=== PATIENT | male | born 1955 | race Caucasian/White ===

== ENCOUNTER → 2018-01-08 | Outpatient (CLI) | payer OTHER | END | disposition home or self-care (01) | LOC: ECHO 07:26 | DX: I42.8 Other cardiomyopathies (principal) | CPT/HCPCS: 93306 ==

== ENCOUNTER 2020-01-28 14:20 | Inpatient (IN) | payer OTHER ==
[~2020-01-28] VITALS: Ht 177.8 cm; Wt 75.2 kg
--- NOTE | 2020-01-28 14:31 | EKG ---
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
--- NOTE | 2020-01-28 14:33 | PHYS DOC ---
Adult General Chief Complaint Chief Complaint: Chest pain HPI HPI Patient is a 64 year old male with history of CAD presents with acute onset left sided chest pain radiating to shoulder and posterior neck. Symptoms began 2 hours prior to ED arrival and rated moderate to severe better significantly with nitroglycerin aspirin and fentanyl. Chest pain similar to prior anginal episodes. Associated symptoms include nausea shortness of breath. No chills, sweats, fever, cough. No leg pain, swelling. History of DVT or PE. Patient's director of medical services is Dr. Navarro. [] Review of Systems Review of Systems Review of symptoms as per HPI. All other review of symptoms are negative.] All other systems were reviewed and found to be within normal limits, except as documented in this note. Current Medications Current Medications Current Medications Medications (Trade) Dose Ordered Sig/Bob Start Time Stop Time Status Last Admin Dose Admin Morphine Sulfate (Morphine Sulfate) 4 mg 1X ONCE 01/28/20 15:45 01/28/20 16:01 DC 01/28/20 16:14 4 MG Allergies Allergies Allergies Coded Allergies Type Severity Reaction Last Updated Verified amoxicillin Allergy Intermediate Rash 01/28/20 Yes clavulanic acid Allergy Intermediate Rash 01/28/20 Yes codeine Allergy Intermediate Rash 01/28/20 Yes Physical Exam Physical Exam Constitutional: Well developed, well nourished, no acute distress, non-toxic appearance. [] HENT: Normocephalic, atraumatic, bilateral external ears normal, oropharynx moist, no oral exudates, nose normal. [] Eyes: PERRLA, EOMI, conjunctiva normal, no discharge. [] Neck: Normal range of motion, no tenderness, supple, no stridor. [] Cardiovascular:Heart rate regular rhythm, no murmur [] Lungs & Thorax: Bilateral breath sounds clear to auscultation [] Abdomen: Bowel sounds normal, soft, no tenderness, no masses, no pulsatile masses. [] Skin: Warm, dry, no erythema, no rash. [] Back: No tenderness, no CVA tenderness. [] Extremities: No tenderness, no cyanosis, no clubbing, ROM intact, no edema. [] Neurologic: Alert and oriented X 3, normal motor function, normal sensory function, no focal deficits noted. [] Psychologic: Affect normal, judgement normal, mood normal. [] Current Patient Data Vital Signs Vital Signs Date Time Temp Pulse Resp B/P (MAP) Pulse Ox O2 Delivery O2 Flow Rate FiO2 01/28/20 16:14 24 95 Room Air 01/28/20 14:20 99.8 103 142/79 (100) 99.8 Lab Values Laboratory Tests Test 01/28/20 14:33 White Blood Count 11.8 x10^3/uL (4.0-11.0) H Red Blood Count 4.58 x10^6/uL (4.30-5.70) Hemoglobin 15.0 g/dL (13.0-17.5) Hematocrit 43.4 % (39.0-53.0) Mean Corpuscular Volume 95 fL (79-100) Mean Corpuscular Hemoglobin 33 pg (25-35) Mean Corpuscular Hemoglobin Concent 35 g/dL (31-37) Red Cell Distribution Width 13.8 % (11.5-14.5) Platelet Count 204 x10^3/uL (140-400) Neutrophils (%) (Auto) 75 % (31-73) H Lymphocytes (%) (Auto) 14 % (24-48) L Monocytes (%) (Auto) 9 % (0-9) Eosinophils (%) (Auto) 1 % (0-3) Basophils (%) (Auto) 1 % (0-3) Neutrophils # (Auto) 8.9 x10^3/uL (1.8-7.7) H Lymphocytes # (Auto) 1.7 x10^3/uL (1.0-4.8) Monocytes # (Auto) 1.1 x10^3/uL (0.0-1.1) Eosinophils # (Auto) 0.1 x10^3/uL (0.0-0.7) Basophils # (Auto) 0.1 x10^3/uL (0.0-0.2) Sodium Level 138 mmol/L (136-145) Potassium Level 4.1 mmol/L (3.5-5.1) Chloride Level 103 mmol/L (98-107) Carbon Dioxide Level 25 mmol/L (21-32) Anion Gap 10 (6-14) Blood Urea Nitrogen 19 mg/dL (8-26) Creatinine 1.0 mg/dL (0.7-1.3) Estimated GFR (Cockcroft-Gault) 75.5 BUN/Creatinine Ratio 19 (6-20) Glucose Level 148 mg/dL (70-99) H Calcium Level 8.9 mg/dL (8.5-10.1) Total Bilirubin 0.7 mg/dL (0.2-1.0) Aspartate Amino Transferase (AST) 37 U/L (15-37) Alanine Aminotransferase (ALT) 85 U/L (16-63) H Alkaline Phosphatase 83 U/L (46-116) Troponin I Quantitative < 0.017 ng/mL (0.000-0.055) EG-Tpv-C-Type Natriuretic Peptide 70 pg/mL (0-124) Total Protein 7.6 g/dL (6.4-8.2) Albumin 3.8 g/dL (3.4-5.0) Albumin/Globulin Ratio 1.0 (1.0-1.7) Laboratory Tests 01/28/20 14:33 Laboratory Tests 01/28/20 14:33 EKG EKG [EKG: No acute] Radiology/Procedures Radiology/Procedures [CXR: NAD] Course & Med Decision Making Course & Med Decision Making Pertinent Labs and Imaging studies reviewed. (See chart for details) [Atypical chest pain resolved with treatment in the emergency department. Borderline ST elevation inferior leads on EKG. Troponin is negative. Will admit to the hospital service for further evaluation and treatment.] Dragon Disclaimer Dragon Disclaimer This electronic medical record was generated, in whole or in part, using a voice recognition dictation system. Departure Departure Impression: Primary Impression: Chest pain Disposition: ADMITTED INPATIENT Condition: STABLE Referrals: ASHLEY SKELTON (PCP) LASHON LOPEZ DO January 28, 2020 14:33
[2020-01-28 14:41] LABS: BASO # 0.1 x10^3/uL (0.0-0.2); BASO % 1 % (0-3); EOS # 0.1 x10^3/uL (0.0-0.7); EOS % 1 % (0-3); HEMATOCRIT 43.4 % (39.0-53.0); LYMPH # 1.7 x10^3/uL (1.0-4.8); LYMPH % 14 % (24-48); MEAN CORPUSCULAR HEMOGLOBIN 33 pg (25-35); MEAN CORPUSCULAR HGB CONC 35 g/dL (31-37); MEAN CORPUSCULAR VOLUME 95 fL (79-100); MONO # 1.1 x10^3/uL (0.0-1.1); MONO % 9 % (0-9); NEUT # 8.9 x10^3/uL (1.8-7.7); NEUT % 75 % (31-73); PLATELET COUNT 204 x10^3/uL (140-400); RED BLOOD COUNT 4.58 x10^6/uL (4.30-5.70); RED CELL DISTRIBUTION WIDTH 13.8 % (11.5-14.5); WHITE BLOOD COUNT 11.8 x10^3/uL (4.0-11.0)
[2020-01-28 14:51] LABS: CALCIUM 8.9 mg/dL (8.5-10.1); GFR 75.5; POTASSIUM 4.1 mmol/L (3.5-5.1)
[2020-01-28 14:57] LABS: ALBUMIN 3.8 g/dL (3.4-5.0); TOTAL BILIRUBIN 0.7 mg/dL (0.2-1.0); TOTAL PROTEIN 7.6 g/dL (6.4-8.2)
--- NOTE | 2020-01-28 15:07 | RAD ---
EXAM: CHEST 1 VIEW History: Chest pain COMPARISON: None available. TECHNIQUE: Single portable radiograph of the chest FINDINGS: The cardiac silhouette is unremarkable. The lungs are clear bilaterally. The costophrenic sulci are clear and well demarcated. IMPRESSION: No radiographic evidence of an acute cardiopulmonary process. Electronically signed by: Pradip Tarango MD (01/28/2020 3:04 PM) [id number]
[2020-01-28] MEDS ORDERED: MORPHINE SULFATE 4 MG/ML VIAL. IV ONE (15:45)
[2020-01-28] MEDS ORDERED: KETOROLAC 30 MG/ML VIAL. IVP ONE (17:00)
[2020-01-28] MEDS ORDERED: IV NORMAL SALINE 1000ML BAG 1,000 ML IV ONE (17:00)
[2020-01-28 17:03] LABS: BILIRUBIN,URINE SMALL (NEG); CLARITY,URINE CLOUDY; COLOR,URINE YELLOW; NITRITE,URINE NEGATIVE (NEG); PH,URINE 5.5 (<5.0-8.0); PROTEIN,URINE 30 mg/dL (NEG-TRACE)
[2020-01-28 17:08] LABS: BACTERIA,URINE 0 /HPF (0-FEW); HYALINE CASTS, URINE FEW /HPF; RBC,URINE >40 /HPF (0-2); WBC,URINE >40 /HPF (0-4)
[2020-01-28 18:45] VITALS: BP 151/75
--- NOTE | 2020-01-28 19:00 | NUR ---
Admit from ED to [facility] room 673 prior to shift change. A/O x 3. C/O chest pain rated 9/10 described as pressure as well as cough. Reports going to [place] 3 times in the month of October. Orientated to room and call light. Reviewed POC to include Tele monitor, Lab draws such as troponin and COVID nasal swab results. Verbalized understanding. Resting in bed with call light at hand.
[2020-01-28] MEDS: oxyCODONE/APAP 5/325 1 TAB TABLET PO PRN (19:51)
[2020-01-28] MEDS: cefTRIAXone IV Push 1 GM VIAL. IVP SCH (19:51)
[2020-01-28] MEDS ORDERED: CARV6.25 PO (20:15)
[2020-01-28] MEDS ORDERED: ATOR40TA PO (20:16)
[2020-01-28] MEDS ORDERED: ABAC1TAB13 PO (20:18)
[2020-01-28] MEDS ORDERED: DIFL5DRO2 OP (20:24)
[2020-01-28] MEDS ORDERED: ANAS1TAB47 PO (20:25)
[2020-01-28] MEDS ORDERED: NITROGLYCERIN SUBLINGUAL 0.4 MG BOTTLE OF 25. SL PRN (20:30)
--- NOTE | 2020-01-28 20:38 | PDOC1 ---
History and Physical Date of Admission Date of Admission DATE: 01/28/20 TIME: 20:33 History of Present Illness History of Present Illness Mr. Floyd is a 64 year old male with history of CAD presents with acute onset left sided chest pain radiating to shoulder and posterior neck. Symptoms began 2 hours prior to ED arrival and rated moderate to severe better significantly with nitroglycerin aspirin and fentanyl. Chest pain similar to prior anginal episodes. Associated symptoms include nausea shortness of breath. No chills, sweats, fever, cough. No leg pain, swelling. History of DVT or PE. Patient's sponge clipper is Dr. Navarro. [] Past Medical History Cardiovascular: HTN, Other (had SVT, s/p AMIO taken off years ago, ) Pulmonary: No pertinent hx Heme/Onc: No pertinent hx Hepatobiliary: No pertinent hx Infectious disease: HIV Renal/: No pertinent hx Past Surgical History Past Surgical History: No pertinent history Family History Family History: No Significant Social History Smoke: No Drugs: None Current Problem List Problem List Problems Medical Problems: (1) Acute febrile illness Status: Acute (2) Chest pain Status: Acute Current Medications Current Medications Current Medications Morphine Sulfate (Morphine Sulfate) 4 mg 1X ONCE IV Last administered on 01/28/20at 16:14; Start 01/28/20 at 15:45; Stop 01/28/20 at 16:01; Status DC Sodium Chloride 1,000 ml @ 1,000 mls/hr 1X ONCE IV Last administered on 01/28/20at 17:14; Start 01/28/20 at 17:00; Stop 01/28/20 at 17:59; Status DC Ketorolac Tromethamine (Toradol 30mg Vial) 30 mg 1X ONCE IVP Last administered on 01/28/20at 17:12; Start 01/28/20 at 17:00; Stop 01/28/20 at 17:01; Status DC Oxycodone/ Acetaminophen (Percocet 5/325) 1 tab PRN Q4HRS PRN PO PAIN Last administered on 01/28/20at 19:51; Start 01/28/20 at 19:00 Ceftriaxone Sodium (Rocephin) 1 gm Q24H IVP Last administered on 01/28/20at 19:51; Start 01/28/20 at 19:00 Docusate Sodium (Colace) 100 mg DAILY PO ; Start 01/29/20 at 09:00 Morphine Sulfate (Morphine Sulfate) 4 mg PRN Q2HR PRN IV PAIN; Start 01/28/20 at 20:30; Status UNV Nitroglycerin (Nitrostat) 0.4 mg PRN Q5MIN PRN SL CHEST PAIN; Start 01/28/20 at 20:30; Status UNV Active Scripts Active Reported Arimidex (Anastrozole) 1 Mg Tablet 1 Tab PO DAILY 30 Days Durezol (Difluprednate) 5 Ml Drops 5 Ml OP BID Triumeq Tablet (Abacavir/Dolutegravir/Lamivudi) 1 Each Tablet 1 Tab PO DAILY 30 Days Lipitor (Atorvastatin Calcium) 40 Mg Tablet 40 Mg PO HS Coreg (Carvedilol) 6.25 Mg Tablet 6.25 Mg PO BIDWMEALS Allergies Allergies: Coded Allergies: amoxicillin (Verified Allergy, Intermediate, Rash, 01/28/20) clavulanic acid (Verified Allergy, Intermediate, Rash, 01/28/20) codeine (Verified Allergy, Intermediate, Rash, 01/28/20) ROS General: YES: Chills, Fatigue; No: Night Sweats, Malaise, Appetite, Other PSYCHOLOGICAL ROS: YES: Sleep disturbances; No: Anxiety, Behavioral Disorder, Concentration difficultie, Decreased libido, Depression, Disorientation, Hallucinations, Hostility, Irritablity, Memory difficulties, Mood Swings, Obsessive thoughts, Suicidal ideation, Other Eyes: No Blurry vision, No Decreased vision, No Double vision, No Dry eyes, No Excessive tearing, No Eye Pain, No Itchy Eyes, No Loss of vision, No Photophobia, No Scotomata, No Uses contacts, No Uses glasses, No Other HEENT: No: Heacaches, Visual Changes, Hearing change, Nasal congestion, Nasal discharge, Oral lesions, Sinus pain, Sore Throat, Epistaxis, Sneezing, Snoring, Tinnitus, Vertigo, Vocal changes, Other Respiratory: YES: Cough; No: Hemoptysis, Orthopnea, Pleuritic Pain, Shortness of breath, SOB with excertion, Sputum Changes, Stridor, Tachypnea, Wheezing, Other Cardiovascular: yes Chest Pain Gastrointestinal: Yes Nausea; No Vomiting, No Abdominal Pain, No Diarrhea, No Constipation, No Melena, No Hematochezia, No Other Genitourinary: No Dysuria, No Frequency, No Incontinence, No Hematuria, No Re tention, No Discharge, No Urgency, No Pain, No Flank Pain, No Other, No , No , No , No , No , No , No Musculoskeletal: No Gait Disturbance, No Joint Pain, No Joint Stiffness, No Joint Swelling, No Muscle Pain, No Muscular Weakness, No Pain In:, No Swelling In:, No Other Neurological: No Behavorial Changes, No Bowel/Bladder ControlChng, No Confusion, No Dizziness, No Gait Disturbance, No Headaches, No Impaired Coord/balance, No Memory Loss, No Numbness/Tingling, No Seizures, No Speech Problems, No Tremors, No Visual Changes, No Weakness, No Other Skin: Yes Dry Skin; No Eczema, No Hair Changes, No Lumps, No Mole Changes, No Mottling, No Nail Changes, No Pruritus, No Rash, No Skin Lesion Changes, No Other, No Acne Physical Exam General: Alert, Oriented X3, Cooperative, mild distress, moderate distress HEENT: Atraumatic, PERRLA, Mucous membr. moist/pink Lungs: Clear to auscultation Heart: S1S2, no gallops, no murmurs Rectal Exam: not examined Extremities: No clubbing, Normal pulses Skin: No rashes, No significant lesion Neuro: Normal speech, Normal tone, Sensation intact, Cranial nerves 3-12 NL Psych/Mental Status: Mood NL Vitals Vitals Vital Signs Date Time Temp Pulse Resp B/P (MAP) Pulse Ox O2 Delivery O2 Flow Rate FiO2 01/28/20 19:51 20 92 Room Air 01/28/20 18:45 98.8 87 151/75 (100) 98.8 Labs Labs Laboratory Tests Test 01/28/20 14:33 01/28/20 16:45 01/28/20 17:25 White Blood Count 11.8 x10^3/uL (4.0-11.0) Red Blood Count 4.58 x10^6/uL (4.30-5.70) Hemoglobin 15.0 g/dL (13.0-17.5) Hematocrit 43.4 % (39.0-53.0) Mean Corpuscular Volume 95 fL (79-100) Mean Corpuscular Hemoglobin 33 pg (25-35) Mean Corpuscular Hemoglobin Concent 35 g/dL (31-37) Red Cell Distribution Width 13.8 % (11.5-14.5) Platelet Count 204 x10^3/uL (140-400) Neutrophils (%) (Auto) 75 % (31-73) Lymphocytes (%) (Auto) 14 % (24-48) Monocytes (%) (Auto) 9 % (0-9) Eosinophils (%) (Auto) 1 % (0-3) Basophils (%) (Auto) 1 % (0-3) Neutrophils # (Auto) 8.9 x10^3/uL (1.8-7.7) Lymphocytes # (Auto) 1.7 x10^3/uL (1.0-4.8) Monocytes # (Auto) 1.1 x10^3/uL (0.0-1.1) Eosinophils # (Auto) 0.1 x10^3/uL (0.0-0.7) Basophils # (Auto) 0.1 x10^3/uL (0.0-0.2) Sodium Level 138 mmol/L (136-145) Potassium Level 4.1 mmol/L (3.5-5.1) Chloride Level 103 mmol/L (98-107) Carbon Dioxide Level 25 mmol/L (21-32) Anion Gap 10 (6-14) Blood Urea Nitrogen 19 mg/dL (8-26) Creatinine 1.0 mg/dL (0.7-1.3) Estimated GFR (Cockcroft-Gault) 75.5 BUN/Creatinine Ratio 19 (6-20) Glucose Level 148 mg/dL (70-99) Calcium Level 8.9 mg/dL (8.5-10.1) Total Bilirubin 0.7 mg/dL (0.2-1.0) Aspartate Amino Transf (AST/SGOT) 37 U/L (15-37) Alanine Aminotransferase (ALT/SGPT) 85 U/L (16-63) Alkaline Phosphatase 83 U/L (46-116) Troponin I Quantitative < 0.017 ng/mL (0.000-0.055) JN-Xey-M-Type Natriuretic Peptide 70 pg/mL (0-124) Total Protein 7.6 g/dL (6.4-8.2) Albumin 3.8 g/dL (3.4-5.0) Albumin/Globulin Ratio 1.0 (1.0-1.7) Urine Collection Type Unknown Urine Color Yellow Urine Clarity Cloudy Urine pH 5.5 (<5.0-8.0) Urine Specific [place] 1.025 (1.000-1.030) Urine Protein 30 mg/dL (NEG-TRACE) Urine Glucose (UA) Negative mg/dL (NEG) Urine Ketones (Stick) Negative mg/dL (NEG) Urine Blood Moderate (NEG) Urine Nitrite Negative (NEG) Urine Bilirubin Small (NEG) Urine Urobilinogen Dipstick 1.0 mg/dL (0.2 mg/dL) Urine Leukocyte Esterase Trace (NEG) Urine RBC >40 /HPF (0-2) Urine WBC >40 /HPF (0-4) Urine Squamous Epithelial Cells None /LPF Urine Bacteria 0 /HPF (0-FEW) Urine Hyaline Casts Few /HPF Urine Mucus Marked /LPF Lactic Acid Level 2.2 mmol/L (0.4-2.0) Laboratory Tests Test 01/28/20 14:33 01/28/20 16:45 01/28/20 17:25 White Blood Count 11.8 x10^3/uL (4.0-11.0) Red Blood Count 4.58 x10^6/uL (4.30-5.70) Hemoglobin 15.0 g/dL (13.0-17.5) Hematocrit 43.4 % (39.0-53.0) Mean Corpuscular Volume 95 fL (79-100) Mean Corpuscular Hemoglobin 33 pg (25-35) Mean Corpuscular Hemoglobin Concent 35 g/dL (31-37) Red Cell Distribution Width 13.8 % (11.5-14.5) Platelet Count 204 x10^3/uL (140-400) Neutrophils (%) (Auto) 75 % (31-73) Lymphocytes (%) (Auto) 14 % (24-48) Monocytes (%) (Auto) 9 % (0-9) Eosinophils (%) (Auto) 1 % (0-3) Basophils (%) (Auto) 1 % (0-3) Neutrophils # (Auto) 8.9 x10^3/uL (1.8-7.7) Lymphocytes # (Auto) 1.7 x10^3/uL (1.0-4.8) Monocytes # (Auto) 1.1 x10^3/uL (0.0-1.1) Eosinophils # (Auto) 0.1 x10^3/uL (0.0-0.7) Basophils # (Auto) 0.1 x10^3/uL (0.0-0.2) Sodium Level 138 mmol/L (136-145) Potassium Level 4.1 mmol/L (3.5-5.1) Chloride Level 103 mmol/L (98-107) Carbon Dioxide Level 25 mmol/L (21-32) Anion Gap 10 (6-14) Blood Urea Nitrogen 19 mg/dL (8-26) Creatinine 1.0 mg/dL (0.7-1.3) Estimated GFR (Cockcroft-Gault) 75.5 BUN/Creatinine Ratio 19 (6-20) Glucose Level 148 mg/dL (70-99) Calcium Level 8.9 mg/dL (8.5-10.1) Total Bilirubin 0.7 mg/dL (0.2-1.0) Aspartate Amino Transf (AST/SGOT) 37 U/L (15-37) Alanine Aminotransferase (ALT/SGPT) 85 U/L (16-63) Alkaline Phosphatase 83 U/L (46-116) Troponin I Quantitative < 0.017 ng/mL (0.000-0.055) ZW-Mxd-M-Type Natriuretic Peptide 70 pg/mL (0-124) Total Protein 7.6 g/dL (6.4-8.2) Albumin 3.8 g/dL (3.4-5.0) Albumin/Globulin Ratio 1.0 (1.0-1.7) Urine Collection Type Unknown Urine Color Yellow Urine Clarity Cloudy Urine pH 5.5 (<5.0-8.0) Urine Specific [place] 1.025 (1.000-1.030) Urine Protein 30 mg/dL (NEG-TRACE) Urine Glucose (UA) Negative mg/dL (NEG) Urine Ketones (Stick) Negative mg/dL (NEG) Urine Blood Moderate (NEG) Urine Nitrite Negative (NEG) Urine Bilirubin Small (NEG) Urine Urobilinogen Dipstick 1.0 mg/dL (0.2 mg/dL) Urine Leukocyte Esterase Trace (NEG) Urine RBC >40 /HPF (0-2) Urine WBC >40 /HPF (0-4) Urine Squamous Epithelial Cells None /LPF Urine Bacteria 0 /HPF (0-FEW) Urine Hyaline Casts Few /HPF Urine Mucus Marked /LPF Lactic Acid Level 2.2 mmol/L (0.4-2.0) VTE Prophylaxis Ordered VTE Prophylaxis Devices: No VTE Pharmacological Prophylaxi: Yes Assessment/Plan Assessment/Plan chest pain, angina, r/o ACS cough, r/o COVID with cehst pain and pressure, on PUI status in covid unit HIV +, cont home meds sepsis, IV fluid given UTI, JAKE stout IRA W MD January 28, 2020 20:38
[2020-01-28] MEDS ORDERED: BENZONATATE 100 MG CAPSULE. PO PRN (20:45)
[2020-01-28] MEDS ORDERED: guaiFENesin/CODEINE 100mg/10mg 5 ML LIQUID PO PRN (20:45)
[2020-01-28] MEDS: NON FORMULARY ITEM (Difluprednate (Durezol) 5 ML) OP SCH (21:00)
[2020-01-28] MEDS ORDERED: guaiFENesin DM 200MG/20MG 10 ML SYRUP PO PRN (21:00)
[2020-01-28] MEDS ORDERED: ENOXAPARIN 40 MG/0.4 ML SYRINGE. SQ SCH (21:00)
[2020-01-28] MEDS: ATORVASTATIN CALCIUM 40 MG TABLET. PO SCH (22:19)
[2020-01-28] MEDS: MORPHINE SULFATE 4 MG/ML VIAL. IV PRN (22:21)
[2020-01-28 23:00] VITALS: BP 159/64
[2020-01-29] VITALS (7 sets, daily range): BP systolic 108–175; BP diastolic 64–118
[2020-01-29] MEDS: oxyCODONE/APAP 5/325 1 TAB TABLET PO PRN ×2 (06:52→21:22)
[2020-01-29] MEDS: MORPHINE SULFATE 4 MG/ML VIAL. IV PRN ×4 (07:55→17:51)
[2020-01-29] MEDS: DOCUSATE SODIUM 100 MG CAPSULE. PO SCH (07:55)
[2020-01-29] MEDS ORDERED: CARVEDILOL 6.25 MG TABLET. PO SCH (08:00)
--- NOTE | 2020-01-29 08:29 | NUR ---
Patient HR ranged from 130-174. Patient was assessed and given his morning meds at 0800 hours - Coreg PO and Morphine IVP. The oncall ampoule examiner was paged for further guidance.
[2020-01-29] MEDS: ANASTROZOLE 1 MG TABLET PO SCH (08:43)
[2020-01-29] MEDS: NON FORMULARY ITEM (Difluprednate (Durezol) 5 ML) OP SCH ×2 (09:00→21:00)
[2020-01-29] MEDS: DOLUTEGRAVIR PO SCH (09:00)
[2020-01-29] MEDS: ABACAVIR PO SCH (09:00)
[2020-01-29] MEDS: LAMIVUDI PO SCH (09:00)
[2020-01-29] MEDS ORDERED: METOPROLOL TARTRATE 5 MG/5 ML VIAL. IVP ONE ×3 (09:15→12:00)
--- NOTE | 2020-01-29 09:51 | PDOC2 ---
RODGER DURON WORD PROCESSOR OPERATOR 01/29/20 0951: CARDIAC CONSULT DATE OF CONSULT Date of Consult DATE: 01/29/20 TIME: 09:35 REASON FOR CONSULT Reason for Consult: Chest pain REFERRING PHYSICIAN Referring Physician: Dr. Armstrong SOURCE Source: Chart review, Patient HISTORY OF PRESENT ILLNESS HISTORY OF PRESENT ILLNESS This is a 64 yo male who presented secondary to chest pain. Patient reports acute onset of pain yesterday afternoon. Describes as pressure. Located in his central chest. Associated with shortness of breath. More painful to take a deep breath. No dizziness, diaphoresis, palpitations, or nausea/vomiting. This morning, went into AFIB with RVR. Rate currently 135 and patient denies any palpitations whatsoever. Pain was improved with morphine. Continues to having mild central chest pain. PAST MEDICAL HISTORY Cardiovascular: AFIB (event monitor without AFIB, was taken off Amiodarone ), CHF (NICM), Hyperlipidemia, Other (SVT) Psych: Anxiety, Depression Infectious disease: HIV PAST SURGICAL HISTORY Past Surgical History: Hernia Repair, Tonsillectomy FAMILY HISTORY Family History: Asthma, Diabetes, Heart Disease, Hypertension SOCIAL HISTORY Smoke: No (cigars ) ALCOHOL: occassional Drugs: None Lives: with Family CURRENT MEDICATIONS CURRENT MEDICATIONS Current Medications Medications (Trade) Dose Ordered Sig/Bob Route PRN Reason Start Time Stop Time Status Last Admin Dose Admin Morphine Sulfate (Morphine Sulfate) 4 mg 1X ONCE IV 01/28/20 15:45 01/28/20 16:01 DC 01/28/20 16:14 Sodium Chloride 1,000 ml @ 1,000 mls/hr 1X ONCE IV 01/28/20 17:00 01/28/20 17:59 DC 01/28/20 17:14 Ketorolac Tromethamine (Toradol 30mg Vial) 30 mg 1X ONCE IVP 01/28/20 17:00 01/28/20 17:01 DC 01/28/20 17:12 Oxycodone/ Acetaminophen (Percocet 5/325) 1 tab PRN Q4HRS PRN PO PAIN 01/28/20 19:00 01/29/20 06:52 Ceftriaxone Sodium (Rocephin) 1 gm Q24H IVP 01/28/20 19:00 01/28/20 19:51 Docusate Sodium (Colace) 100 mg DAILY PO 01/29/20 09:00 01/29/20 07:55 Morphine Sulfate (Morphine Sulfate) 4 mg PRN Q2HR PRN IV PAIN 01/28/20 20:30 01/29/20 07:55 Atorvastatin Calcium (Lipitor) 40 mg HS PO 01/28/20 21:00 01/28/20 22:19 Carvedilol (Coreg) 6.25 mg BIDWMEALS PO 01/29/20 08:00 01/29/20 07:55 Enoxaparin Sodium (Lovenox 40mg Syringe) 40 mg Q24H SQ 01/28/20 21:00 01/28/20 22:20 Metoprolol Tartrate (Lopressor Vial) 5 mg 1X ONCE IVP 01/29/20 09:15 01/29/20 09:16 DC 01/29/20 09:26 ALLERGIES ALLERGIES: Coded Allergies: amoxicillin (Verified Allergy, Intermediate, Rash, 01/28/20) clavulanic acid (Verified Allergy, Intermediate, Rash, 01/28/20) codeine (Verified Allergy, Intermediate, Rash, 01/28/20) ROS Review of System 14 point ROS conducted with pertinent positives noted above in hPI PHYSICAL EXAM General: Alert, Oriented X3, Cooperative, No acute distress HEENT: Atraumatic, Mucous membr. moist/pink Lungs: Clear to auscultation Heart: Other (IRRR; tele AFIB with RVR) Abdomen: Soft, No tenderness Extremities: No edema, Normal pulses Skin: No significant lesion Neuro: Normal speech, Strength at 5/5 X4 ext, Sensation intact Psych/Mental Status: Mental status NL, Mood NL MUSCULOSKELETAL: Osteoarthritic changes both hands VITALS/I&O VITALS/I&O: Vital Signs Date Time Temp Pulse Resp B/P (MAP) Pulse Ox O2 Delivery O2 Flow Rate FiO2 01/29/20 09:26 150 128/71 01/29/20 08:33 Room Air 01/29/20 07:00 100.3 17 93 2.0 100.3 I & O 01/28/20 01/28/20 01/29/20 15:00 23:00 07:00 Intake Total 1200 ml 150 ml Balance 1200 ml 150 ml LABS Lab: Laboratory Tests Test 01/28/20 14:33 01/28/20 16:45 01/28/20 17:25 5/20/20 20:25 White Blood Count 11.8 x10^3/uL (4.0-11.0) H Red Blood Count 4.58 x10^6/uL (4.30-5.70) Hemoglobin 15.0 g/dL (13.0-17.5) Hematocrit 43.4 % (39.0-53.0) Mean Corpuscular Volume 95 fL (79-100) Mean Corpuscular Hemoglobin 33 pg (25-35) Mean Corpuscular Hemoglobin Concent 35 g/dL (31-37) Red Cell Distribution Width 13.8 % (11.5-14.5) Platelet Count 204 x10^3/uL (140-400) Neutrophils (%) (Auto) 75 % (31-73) H Lymphocytes (%) (Auto) 14 % (24-48) L Monocytes (%) (Auto) 9 % (0-9) Eosinophils (%) (Auto) 1 % (0-3) Basophils (%) (Auto) 1 % (0-3) Neutrophils # (Auto) 8.9 x10^3/uL (1.8-7.7) H Lymphocytes # (Auto) 1.7 x10^3/uL (1.0-4.8) Monocytes # (Auto) 1.1 x10^3/uL (0.0-1.1) Eosinophils # (Auto) 0.1 x10^3/uL (0.0-0.7) Basophils # (Auto) 0.1 x10^3/uL (0.0-0.2) Sodium Level 138 mmol/L (136-145) Potassium Level 4.1 mmol/L (3.5-5.1) Chloride Level 103 mmol/L (98-107) Carbon Dioxide Level 25 mmol/L (21-32) Anion Gap 10 (6-14) Blood Urea Nitrogen 19 mg/dL (8-26) Creatinine 1.0 mg/dL (0.7-1.3) Estimated GFR (Cockcroft-Gault) 75.5 BUN/Creatinine Ratio 19 (6-20) Glucose Level 148 mg/dL (70-99) H Calcium Level 8.9 mg/dL (8.5-10.1) Total Bilirubin 0.7 mg/dL (0.2-1.0) Aspartate Amino Transferase (AST) 37 U/L (15-37) Alanine Aminotransferase (ALT) 85 U/L (16-63) H Alkaline Phosphatase 83 U/L (46-116) Troponin I Quantitative < 0.017 ng/mL (0.000-0.055) JI-Nex-A-Type Natriuretic Peptide 70 pg/mL (0-124) Total Protein 7.6 g/dL (6.4-8.2) Albumin 3.8 g/dL (3.4-5.0) Albumin/Globulin Ratio 1.0 (1.0-1.7) Urine Collection Type Unknown Urine Color Yellow Urine Clarity Cloudy Urine pH 5.5 (<5.0-8.0) Urine Specific [place] 1.025 (1.000-1.030) Urine Protein 30 mg/dL (NEG-TRACE) Urine Glucose (UA) Negative mg/dL (NEG) Urine Ketones (Stick) Negative mg/dL (NEG) Urine Blood Moderate (NEG) Urine Nitrite Negative (NEG) Urine Bilirubin Small (NEG) Urine Urobilinogen Dipstick 1.0 mg/dL (0.2 mg/dL) Urine Leukocyte Esterase Trace (NEG) Urine RBC >40 /HPF (0-2) Urine WBC >40 /HPF (0-4) Urine Squamous Epithelial Cells None /LPF Urine Bacteria 0 /HPF (0-FEW) Urine Hyaline Casts Few /HPF Urine Mucus Marked /LPF Lactic Acid Level 2.2 mmol/L (0.4-2.0) H 1.9 mmol/L (0.4-2.0) Test 01/28/20 22:15 01/29/20 04:50 Troponin I Quantitative < 0.017 ng/mL (0.000-0.055) < 0.017 ng/mL (0.000-0.055) Laboratory Tests 01/28/20 14:33 Laboratory Tests 01/28/20 14:33 ECHOCARDIOGRAM ECHOCARDIOGRAM <Conclusion> The left ventricular systolic function is normal. The Ejection Fraction is 55-60%. There is normal LV segmental wall motion. There is no evidence of significant pericardial effusion. DATE: 01/08/18 0935 ASSESSMENT/PLAN ASSESSMENT/PLAN 1. Chest pain, mixed features; AMI ruled out 2. AFIB with RVR; with h/o paroxysmal AFIB. ? contributing to above. Initially SR, but converted to AFIB with RVR this am. Event monitor in past without evidence of AFIB. Amiodarone was discontinued 3. H/o NICM; 2006. Cath at that time with normal coronaries. Most recent echo 01/25 with LV recovery with EF 55-60% as noted above. 4. Hyperlipidemia 5. HIV 6. low-grade fevers, poss UTI Recommendations IV Lopressor x1 now Convert coreg to metoprolol for rate control TSH Lipids Will start Eliquis for stroke prophylaxis given AFIB and HIV Echo to assess LV systolic function if COVID ruled out Plan for further ischemic workup, possibly as an outpatient. Outpatient CV Supportive care ERIKA DWYER MD 01/29/20 1617: CARDIAC CONSULT ASSESSMENT/PLAN ASSESSMENT/PLAN Patient seen and evaluated Agree with our nurse practitioners assessment and plan. Chest pain. Acute infarction ruled out. Will check a d-dimer. Echocardiogram once COVID ruled out. Probable future outpatient stress testing. Atrial fibrillation. Rate control as above. Will start on anticoagulation. Continue monitoring. Hyperlipidemia. Continue statins. Check lab. HIV. Continue baseline medications. History of a resolved nonischemic cardiomyopathy. Echo as above. Thank you for allowing us to participate in the care of your patient. RODGER DURON APRN January 29, 2020 09:51 ERIKA DWYER MD January 29, 2020 16:17
[2020-01-29 10:17] LABS: CHOLESTEROL/HDL RATIO 3.2
--- NOTE | 2020-01-29 11:18 | NUR ---
Patient received IVP Metoprolol 5mg. Patient's HR range between 114 -136. ST rhythm Addendum: 01/29/20 at 1227 by JOHN PEPPER RN RN Patient Received 1st Dose of Metoprolol at approximately 0915 hours. Patient's Rhythms : SR, ST, AFIB
--- NOTE | 2020-01-29 12:27 | NUR ---
Patient received IVP Metoprolol 5mg at approximately 1155 hours, order received. BP 117/71 HR range 108 -130. Rhythm Afib.
--- NOTE | 2020-01-29 13:39 | NUR ---
SS following for discharge planning. SS reviewed pt chart and discussed with pt RN. Pt is from home with spouse and is currently on PRN oxygen. Pt COVID19 test pending. SS will continue to follow for discharge planning.
[2020-01-29] MEDS ORDERED: DIGOXIN IV 500 MCG/2 ML AMPUL. IV ONE (14:30)
[2020-01-29] MEDS ORDERED: ONDANSETRON PF 4 MG/2 ML VIAL. IVP PRN (15:45)
--- NOTE | 2020-01-29 15:49 | PDOC ---
PROGRESS NOTES Chief Complaint Chief Complaint Atypical chest pain rule out ACS Cough rule out COVID infection HIV positive UTI? Mildly elevated lactic acid without clinical significance Plan Awaiting for cardiology consult Continue home Symptomatic relief of symptoms Reassurance provided Further recommendations based on clinical course History of Present Illness History of Present Illness No acute events reported overnight, case discussed with nursing staff patient in no acute distress no complaints during my visit Vitals Vitals Vital Signs Date Time Temp Pulse Resp B/P (MAP) Pulse Ox O2 Delivery O2 Flow Rate FiO2 01/29/20 15:45 20 Nasal Cannula 01/29/20 15:03 142 128/78 01/29/20 15:00 97.9 95 2.0 97.9 Physical Exam General: Alert, Oriented X3, Cooperative, mild distress, moderate distress Heart: Regular rate, Normal S1, Normal S2, No murmurs Lungs: Clear Abdomen: Normal bowel sounds, Soft, No tenderness Extremities: No clubbing, Normal pulses Skin: No rashes, No significant lesion Labs LABS Laboratory Tests Test 01/28/20 16:45 01/28/20 17:25 01/28/20 20:25 01/28/20 22:15 Urine Collection Type Unknown Urine Color Yellow Urine Clarity Cloudy Urine pH 5.5 (<5.0-8.0) Urine Specific [place] 1.025 (1.000-1.030) Urine Protein 30 mg/dL (NEG-TRACE) Urine Glucose (UA) Negative mg/dL (NEG) Urine Ketones (Stick) Negative mg/dL (NEG) Urine Blood Moderate (NEG) Urine Nitrite Negative (NEG) Urine Bilirubin Small (NEG) Urine Urobilinogen Dipstick 1.0 mg/dL (0.2 mg/dL) Urine Leukocyte Esterase Trace (NEG) Urine RBC >40 /HPF (0-2) Urine WBC >40 /HPF (0-4) Urine Squamous Epithelial Cells None /LPF Urine Bacteria 0 /HPF (0-FEW) Urine Hyaline Casts Few /HPF Urine Mucus Marked /LPF Lactic Acid Level 2.2 mmol/L (0.4-2.0) 1.9 mmol/L (0.4-2.0) Troponin I Quantitative < 0.017 ng/mL (0.000-0.055) Test 01/29/20 04:50 Troponin I Quantitative < 0.017 ng/mL (0.000-0.055) Triglycerides Level 257 mg/dL (0-150) Cholesterol Level 123 mg/dL (0-200) LDL Cholesterol, Calculated 34 mg/dL (0-100) VLDL Cholesterol, Calculated 51 mg/dL (0-40) Non-HDL Cholesterol Calculated 85 mg/dL (0-129) HDL Cholesterol 38 mg/dL (40-60) Cholesterol/HDL Ratio 3.2 Thyroid Stimulating Hormone (TSH) 0.832 uIU/mL (0.358-3.74) Assessment and Plan Assessmemt and Plan Problems Medical Problems: (1) Acute febrile illness Status: Acute (2) Chest pain Status: Acute Comment Review of Relevant I have reviewed the following items desmond (where applicable) has been applied. Labs Laboratory Tests Test 01/28/20 14:33 01/28/20 16:45 01/28/20 17:25 01/28/20 20:25 White Blood Count 11.8 x10^3/uL (4.0-11.0) Red Blood Count 4.58 x10^6/uL (4.30-5.70) Hemoglobin 15.0 g/dL (13.0-17.5) Hematocrit 43.4 % (39.0-53.0) Mean Corpuscular Volume 95 fL (79-100) Mean Corpuscular Hemoglobin 33 pg (25-35) Mean Corpuscular Hemoglobin Concent 35 g/dL (31-37) Red Cell Distribution Width 13.8 % (11.5-14.5) Platelet Count 204 x10^3/uL (140-400) Neutrophils (%) (Auto) 75 % (31-73) Lymphocytes (%) (Auto) 14 % (24-48) Monocytes (%) (Auto) 9 % (0-9) Eosinophils (%) (Auto) 1 % (0-3) Basophils (%) (Auto) 1 % (0-3) Neutrophils # (Auto) 8.9 x10^3/uL (1.8-7.7) Lymphocytes # (Auto) 1.7 x10^3/uL (1.0-4.8) Monocytes # (Auto) 1.1 x10^3/uL (0.0-1.1) Eosinophils # (Auto) 0.1 x10^3/uL (0.0-0.7) Basophils # (Auto) 0.1 x10^3/uL (0.0-0.2) Sodium Level 138 mmol/L (136-145) Potassium Level 4.1 mmol/L (3.5-5.1) Chloride Level 103 mmol/L (98-107) Carbon Dioxide Level 25 mmol/L (21-32) Anion Gap 10 (6-14) Blood Urea Nitrogen 19 mg/dL (8-26) Creatinine 1.0 mg/dL (0.7-1.3) Estimated GFR (Cockcroft-Gault) 75.5 BUN/Creatinine Ratio 19 (6-20) Glucose Level 148 mg/dL (70-99) Calcium Level 8.9 mg/dL (8.5-10.1) Total Bilirubin 0.7 mg/dL (0.2-1.0) Aspartate Amino Transf (AST/SGOT) 37 U/L (15-37) Alanine Aminotransferase (ALT/SGPT) 85 U/L (16-63) Alkaline Phosphatase 83 U/L (46-116) Troponin I Quantitative < 0.017 ng/mL (0.000-0.055) AM-Rby-U-Type Natriuretic Peptide 70 pg/mL (0-124) Total Protein 7.6 g/dL (6.4-8.2) Albumin 3.8 g/dL (3.4-5.0) Albumin/Globulin Ratio 1.0 (1.0-1.7) Urine Collection Type Unknown Urine Color Yellow Urine Clarity Cloudy Urine pH 5.5 (<5.0-8.0) Urine Specific [place] 1.025 (1.000-1.030) Urine Protein 30 mg/dL (NEG-TRACE) Urine Glucose (UA) Negative mg/dL (NEG) Urine Ketones (Stick) Negative mg/dL (NEG) Urine Blood Moderate (NEG) Urine Nitrite Negative (NEG) Urine Bilirubin Small (NEG) Urine Urobilinogen Dipstick 1.0 mg/dL (0.2 mg/dL) Urine Leukocyte Esterase Trace (NEG) Urine RBC >40 /HPF (0-2) Urine WBC >40 /HPF (0-4) Urine Squamous Epithelial Cells None /LPF Urine Bacteria 0 /HPF (0-FEW) Urine Hyaline Casts Few /HPF Urine Mucus Marked /LPF Lactic Acid Level 2.2 mmol/L (0.4-2.0) 1.9 mmol/L (0.4-2.0) Test 01/28/20 22:15 01/29/20 04:50 Troponin I Quantitative < 0.017 ng/mL (0.000-0.055) < 0.017 ng/mL (0.000-0.055) Triglycerides Level 257 mg/dL (0-150) Cholesterol Level 123 mg/dL (0-200) LDL Cholesterol, Calculated 34 mg/dL (0-100) VLDL Cholesterol, Calculated 51 mg/dL (0-40) Non-HDL Cholesterol Calculated 85 mg/dL (0-129) HDL Cholesterol 38 mg/dL (40-60) Cholesterol/HDL Ratio 3.2 Thyroid Stimulating Hormone (TSH) 0.832 uIU/mL (0.358-3.74) Laboratory Tests Test 01/28/20 16:45 01/28/20 17:25 01/28/20 20:25 01/28/20 22:15 Urine Collection Type Unknown Urine Color Yellow Urine Clarity Cloudy Urine pH 5.5 (<5.0-8.0) Urine Specific [place] 1.025 (1.000-1.030) Urine Protein 30 mg/dL (NEG-TRACE) Urine Glucose (UA) Negative mg/dL (NEG) Urine Ketones (Stick) Negative mg/dL (NEG) Urine Blood Moderate (NEG) Urine Nitrite Negative (NEG) Urine Bilirubin Small (NEG) Urine Urobilinogen Dipstick 1.0 mg/dL (0.2 mg/dL) Urine Leukocyte Esterase Trace (NEG) Urine RBC >40 /HPF (0-2) Urine WBC >40 /HPF (0-4) Urine Squamous Epithelial Cells None /LPF Urine Bacteria 0 /HPF (0-FEW) Urine Hyaline Casts Few /HPF Urine Mucus Marked /LPF Lactic Acid Level 2.2 mmol/L (0.4-2.0) 1.9 mmol/L (0.4-2.0) Troponin I Quantitative < 0.017 ng/mL (0.000-0.055) Test 01/29/20 04:50 Troponin I Quantitative < 0.017 ng/mL (0.000-0.055) Triglycerides Level 257 mg/dL (0-150) Cholesterol Level 123 mg/dL (0-200) LDL Cholesterol, Calculated 34 mg/dL (0-100) VLDL Cholesterol, Calculated 51 mg/dL (0-40) Non-HDL Cholesterol Calculated 85 mg/dL (0-129) HDL Cholesterol 38 mg/dL (40-60) Cholesterol/HDL Ratio 3.2 Thyroid Stimulating Hormone (TSH) 0.832 uIU/mL (0.358-3.74) Medications Current Medications Morphine Sulfate (Morphine Sulfate) 4 mg 1X ONCE IV Last administered on 01/28/20at 16:14; Start 01/28/20 at 15:45; Stop 01/28/20 at 16:01; Status DC Sodium Chloride 1,000 ml @ 1,000 mls/hr 1X ONCE IV Last administered on 01/28/20at 17:14; Start 01/28/20 at 17:00; Stop 01/28/20 at 17:59; Status DC Ketorolac Tromethamine (Toradol 30mg Vial) 30 mg 1X ONCE IVP Last administered on 01/28/20at 17:12; Start 01/28/20 at 17:00; Stop 01/28/20 at 17:01; Status DC Oxycodone/ Acetaminophen (Percocet 5/325) 1 tab PRN Q4HRS PRN PO PAIN Last administered on 01/29/20at 06:52; Start 01/28/20 at 19:00 Ceftriaxone Sodium (Rocephin) 1 gm Q24H IVP Last administered on 01/28/20at 19:51; Start 01/28/20 at 19:00 Docusate Sodium (Colace) 100 mg DAILY PO Last administered on 01/29/20at 07:55; Start 01/29/20 at 09:00 Morphine Sulfate (Morphine Sulfate) 4 mg PRN Q2HR PRN IV PAIN Last administered on 01/29/20at 15:45; Start 01/28/20 at 20:30 Nitroglycerin (Nitrostat) 0.4 mg PRN Q5MIN PRN SL CHEST PAIN; Start 01/28/20 at 20:30 Benzonatate (Tessalon Perle) 100 mg PRN TID PRN PO cough; Start 01/28/20 at 20:45 Guaifenesin/ Codeine Phosphate (Robitussin Ac) 5 ml PRN Q6HRS PRN PO COUGH; Start 01/28/20 at 20:45; Stop 01/28/20 at 20:50; Status DC Enoxaparin Sodium (Lovenox Per Pharmacy Prophylaxis Dosing) 1 each PRN DAILY PRN MC SEE COMMENTS; Start 01/28/20 at 20:45 Anastrozole (Arimidex) 1 mg DAILY PO ; Start 01/29/20 at 09:00 Atorvastatin Calcium (Lipitor) 40 mg HS PO Last administered on 01/28/20at 22:19 ; Start 01/28/20 at 21:00 Carvedilol (Coreg) 6.25 mg BIDWMEALS PO Last administered on 01/29/20at 07:55; Start 01/29/20 at 08:00 Non-Formulary Medication (Abacavir/ Dolutegravir/ Lamivudi (Triumeq Tablet)) 1 tab DAILY PO ; Start 01/29/20 at 09:00; Status UNV Non-Formulary Medication (Difluprednate (Durezol)) 5 ml BID OP ; Start 01/28/20 at 21:00; Status UNV Enoxaparin Sodium (Lovenox 40mg Syringe) 40 mg Q24H SQ Last administered on 01/28/20at 22:20; Start 01/28/20 at 21:00 Guaifenesin (Robitussin Dm) 10 ml PRN Q6HRS PRN PO COUGH; Start 01/28/20 at 21:00 Metoprolol Tartrate (Lopressor Vial) 5 mg 1X ONCE IVP Last administered on 01/29/20at 09:26; Start 01/29/20 at 09:15; Stop 01/29/20 at 09:16; Status DC Metoprolol Tartrate (Lopressor Vial) 5 mg 1X ONCE IVP ; Start 01/29/20 at 09:15; Stop 01/29/20 at 09:06; Status DC Metoprolol Tartrate (Lopressor Vial) 5 mg 1X ONCE IVP Last administered on 01/29/20at 11:50; Start 01/29/20 at 12:00; Stop 01/29/20 at 12:01; Status DC Digoxin (Lanoxin) 500 mcg 1X ONCE IV Last administered on 01/29/20at 15:03; Start 01/29/20 at 14:30; Stop 01/29/20 at 14:31; Status DC Ondansetron HCl (Zofran) 4 mg PRN Q6HRS PRN IVP NAUSEA/VOMITING Last administered on 01/29/20at 15:45; Start 01/29/20 at 15:45 Active Scripts Active Reported Arimidex (Anastrozole) 1 Mg Tablet 1 Tab PO DAILY 30 Days Durezol (Difluprednate) 5 Ml Drops 5 Ml OP BID Triumeq Tablet (Abacavir/Dolutegravir/Lamivudi) 1 Each Tablet 1 Tab PO DAILY 30 Days Lipitor (Atorvastatin Calcium) 40 Mg Tablet 40 Mg PO HS Coreg (Carvedilol) 6.25 Mg Tablet 6.25 Mg PO BIDWMEALS Vitals/I & O Vital Sign - Last 24 Hours 01/28/20 01/28/20 01/28/20 01/28/20 16:00 16:14 16:30 16:48 Pulse 97 96 Resp 24 B/P (MAP) 157/82 (107) 162/82 (108) Pulse Ox 97 95 96 96 O2 Delivery Room Air Room Air 01/28/20 01/28/20 01/28/20 01/28/20 16:59 17:29 17:59 18:20 Temp 101.7 101.7 Pulse 104 98 92 90 Resp 24 20 B/P (MAP) 161/97 (118) 160/72 (101) 139/67 (91) 140/72 (94) Pulse Ox 97 97 96 97 O2 Delivery Room Air Room Air Room Air Room Air 01/28/20 01/28/20 01/28/20 01/28/20 18:45 19:51 20:00 20:51 Temp 98.8 98.8 Pulse 87 Resp B/P (MAP) 151/75 (100) Pulse Ox 92 92 92 O2 Delivery Room Air Room Air Room Air Room Air 01/28/20 01/28/20 01/28/20 01/29/20 22:21 22:51 23:00 03:00 Temp 99.9 99.1 99.9 99.1 Pulse 85 104 Resp B/P (MAP) 159/64 (95) 169/97 (121) Pulse Ox 92 92 97 92 O2 Delivery Room Air Room Air Room Air Nasal Cannula O2 Flow Rate 2.0 01/29/20 01/29/20 01/29/20 01/29/20 06:52 07:00 07:55 08:00 Temp 100.3 100.3 Pulse 145 104 Resp 24 17 B/P (MAP) 108/64 (79) 169/97 Pulse Ox 92 93 O2 Delivery Room Air Nasal Cannula Room Air O2 Flow Rate 2.0 01/29/20 01/29/20 01/29/20 01/29/20 08:33 09:26 10:39 11:00 Temp 97.9 97.9 Pulse 150 132 Resp 16 B/P (MAP) 128/71 109/65 (80) Pulse Ox 97 O2 Delivery Room Air Nasal Cannula Nasal Cannula O2 Flow Rate 2.0 2.0 01/29/20 01/29/20 01/29/20 01/29/20 11:50 15:00 15:00 15:03 Temp 97.9 97.9 Pulse 148 117 126 142 Resp 20 B/P (MAP) 117/72 140/86 (104) 175/118 (137) 128/78 Pulse Ox 95 O2 Delivery Nasal Cannula O2 Flow Rate 2.0 01/29/20 15:45 Resp 20 O2 Delivery Nasal Cannula Intake and Output 01/28/20 01/28/20 01/29/20 15:00 23:00 07:00 Intake Total 1200 ml 150 ml Balance 1200 ml 150 ml TAVO RAMON MD January 29, 2020 15:49
[2020-01-29] MEDS ORDERED: ANTI-COAG MONITOR BY PHARMACY. MC PRN (16:15)
--- NOTE | 2020-01-29 16:15 | NUR ---
patient AFIB HR 130-160. Orders received. Patient received 500mcg IVP Digoxin at 1430 hours. Patient's HR range after dosage 108 -120. At approximately 1505 hours, patient stood up to utilize the urinal - HR 150-180, BP 175/89 RR 24. After 15 minutes, patient's BP 140/86 HR 105-120. At approximately 1600 hours, patient received Morphine and Zofran for pain and nausea/ dry heaving. Patient's BP 156/64 HR 114-130. Orders received for Diltiazem. Patient care transferred to SAROJ Jacinto CVC Nurse.
[2020-01-29] MEDS ORDERED: DILTIAZEM HCL 125 MG in IV NORMAL SALINE 100ML 100 ML IV PRN (16:30)
--- NOTE | 2020-01-29 17:40 | EKG ---
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
[2020-01-29] MEDS: cefTRIAXone IV Push 1 GM VIAL. IVP SCH (17:51)
[2020-01-29] MEDS: ATORVASTATIN CALCIUM 40 MG TABLET. PO SCH (21:20)
[2020-01-29] MEDS: METOPROLOL TART IMMED RELEASE 50 MG TABLET. PO SCH (21:21)
[2020-01-29] MEDS: APIXABAN 5 MG TABLET. PO SCH (21:22)
[2020-01-30] VITALS (8 sets, daily range): BP systolic 122–140; BP diastolic 63–80
--- NOTE | 2020-01-30 07:04 | NUR ---
IP: Pt is COVID negative.
[2020-01-30] MEDS: LAMIVUDI PO SCH (09:00)
[2020-01-30] MEDS: NON FORMULARY ITEM (Difluprednate (Durezol) 5 ML) OP SCH (09:00)
[2020-01-30] MEDS: ABACAVIR PO SCH (09:00)
[2020-01-30] MEDS: DOLUTEGRAVIR PO SCH (09:00)
[2020-01-30] MEDS: DOCUSATE SODIUM 100 MG CAPSULE. PO SCH (09:04)
[2020-01-30] MEDS: APIXABAN 5 MG TABLET. PO SCH (09:04)
[2020-01-30] MEDS: METOPROLOL TART IMMED RELEASE 50 MG TABLET. PO SCH (09:05)
[2020-01-30] MEDS: ANASTROZOLE 1 MG TABLET PO SCH (09:05)
[2020-01-30] MEDS: oxyCODONE/APAP 5/325 1 TAB TABLET PO PRN (09:06)
--- NOTE | 2020-01-30 12:17 | NUR ---
SS following for discharge planning. SS reviewed pt chart and discussed with pt RN. Pt is from home with spouse and is currently on room air. Pt is COVID19 negative. SS will continue to follow for discharge planning.
--- NOTE | 2020-01-30 13:12 | PDOC ---
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 ENGINEER 01/30/20 1312: CARDIO Progress Notes Date and Time Date of Service 01/30/20 Time of Evaluation 1240 Subjective Subjective: No Chest Pain, No shortness of breath, No Palpitations Vitals Vitals Vital Signs Date Time Temp Pulse Resp B/P (MAP) Pulse Ox O2 Delivery O2 Flow Rate FiO2 01/30/20 11:26 97.8 76 18 136/71 (92) 93 Room Air 97.8 01/30/20 03:00 2.0 Weight Weight [ ] Input and Output Intake and Output Intake and Output 01/30/20 07:00 Intake Total 1074 ml Output Total 800 ml Balance 274 ml Intake Oral 980 ml IV Total 94 ml Output Urine Total 800 ml # Voids 3 Laboratory Labs Laboratory Tests Test 01/30/20 04:00 D-Dimer (Petra) 0.32 ug/mlFEU (0.00-0.50) Physical Exam HEENT: Neck Supple W Full Motion Chest: Symmetric LUNGS: Clear to Auscultation Heart: S1S2, RRR (SR), no gallops, no murmurs Extremities: No Calf Tenderness Neurology: alert, oriented, follow commands Assessment Assessment 1. Chest pain, mixed features; AMI ruled out. likely from RVR. Negative for covid 2. PAFIB with RVR: Converted to SR 3. H/o NICM; 2006. Cath at that time with normal coronaries. Most recent echo 01/25 with LV recovery with EF 55-60% as noted above 4. Hyperlipidemia 5. HIV 6. low-grade fevers, poss UTI Recommendations 1. Continue metoprolol. Will consider amiodarone as pt was on this before but discontinued due to low afib burden per [facility] 2. Eliquis for stroke prevention 3. TTE today if able 4. Plan for further ischemic workup, possibly as an outpatient 5. Follow up in office as scheduled ERIKA DWYER MD 01/30/20 1553: CARDIO Progress Notes Assessment Assessment I agree with our nurse practitioners assessment and plan as above. Chest pain AMI ruled out. likely from RVR. Negative for covid. PAFIB with RVR: Converted to SR. continuing beta-blockers and Eliquis. Echo pending. H/o NICM; 2006. Cath at that time with normal coronaries. Most recent echo 01/25 with LV recovery with EF 55-60%. Outpatient follow-up with probable ischemic work-up. Hyperlipidemia HIV NICOLAS DE JESUS APRN January 30, 2020 13:12 ERIKA DWYER MD January 30, 2020 15:53
[2020-01-30] MEDS ORDERED: APIX5TAB PO (15:00)
[2020-01-30] MEDS ORDERED: CEFD300C PO (15:00)
[2020-01-30] MEDS ORDERED: METO50TA6 PO (15:00)
--- NOTE | 2020-01-30 15:09 | PDOC3 ---
Discharge Summary Visit Information Date of Admission: January 28, 2020 Date of Discharge: January 30, 2020 Admitting Diagnosis Comment: chest pain, angina, r/o ACS cough, r/o COVID with cehst pain and pressure, on PUI status in covid unit HIV +, cont home meds sepsis, IV fluid given UTI, rocephin, Final Diagnosis Atypical chest pain ACS ruled out Cough ruled out COVID infection HIV positive UTI secondary to staph epi Mildly elevated lactic acid without clinical significance New onset atrial fibrillation newly started anticoagulation Brief Hospital Course Allergies Allergies Coded Allergies Type Severity Reaction Last Updated Verified amoxicillin Allergy Intermediate Rash 01/28/20 Yes clavulanic acid Allergy Intermediate Rash 01/28/20 Yes codeine Allergy Intermediate Rash 01/28/20 Yes Vital Signs Vital Signs Date Time Temp Pulse Resp B/P (MAP) Pulse Ox O2 Delivery O2 Flow Rate FiO2 01/30/20 11:26 97.8 76 18 136/71 (92) 93 Room Air 97.8 01/30/20 03:00 2.0 Lab Results Laboratory Tests Test 01/28/20 16:45 01/28/20 17:25 01/28/20 20:25 01/28/20 22:15 Urine Collection Type Unknown Urine Color Yellow Urine Clarity Cloudy Urine pH 5.5 (<5.0-8.0) Urine Specific [place] 1.025 (1.000-1.030) Urine Protein 30 mg/dL (NEG-TRACE) Urine Glucose (UA) Negative mg/dL (NEG) Urine Ketones (Stick) Negative mg/dL (NEG) Urine Blood Moderate (NEG) Urine Nitrite Negative (NEG) Urine Bilirubin Small (NEG) Urine Urobilinogen Dipstick 1.0 mg/dL (0.2 mg/dL) Urine Leukocyte Esterase Trace (NEG) Urine RBC >40 /HPF (0-2) Urine WBC >40 /HPF (0-4) Urine Squamous Epithelial Cells None /LPF Urine Bacteria 0 /HPF (0-FEW) Urine Hyaline Casts Few /HPF Urine Mucus Marked /LPF Lactic Acid Level 2.2 mmol/L (0.4-2.0) 1.9 mmol/L (0.4-2.0) Coronavirus (COVID-19)(PCR) See separate report Troponin I Quantitative < 0.017 ng/mL (0.000-0.055) Test 01/29/20 04:50 01/30/20 04:00 Troponin I Quantitative < 0.017 ng/mL (0.000-0.055) Triglycerides Level 257 mg/dL (0-150) Cholesterol Level 123 mg/dL (0-200) LDL Cholesterol, Calculated 34 mg/dL (0-100) VLDL Cholesterol, Calculated 51 mg/dL (0-40) Non-HDL Cholesterol Calculated 85 mg/dL (0-129) HDL Cholesterol 38 mg/dL (40-60) Cholesterol/HDL Ratio 3.2 Thyroid Stimulating Hormone (TSH) 0.832 uIU/mL (0.358-3.74) D-Dimer (Petra) 0.32 ug/mlFEU (0.00-0.50) Laboratory Tests Test 01/30/20 04:00 D-Dimer (Petra) 0.32 ug/mlFEU (0.00-0.50) Brief Hospital Course Patient admitted initially to be ruled out from COVID. The patient unfortunately during his hospital stay presented atrial fibrillation with rapid ventricular response prompting a cardiological evaluation. The patient has had history in the past of nonischemic cardiomyopathy diagnosed in mid 2005, his EF has ever since recovered from that initial insult. The patient had a echocard iogram approximately 2 years ago with a neck ejection fraction of 60%, the patient did not present signs and symptoms consistent with congestive heart failure or decompensation. He is COVID-19 testing was negative he was transitioned from Cardizem drip to oral component of metoprolol and noted to have rate control and was deemed appropriate for dismissal from the cardiological standpoint of view Consult recommendations are as follows 1. Chest pain, mixed features; AMI ruled out. likely from RVR. Negative for covid 2. PAFIB with RVR: Converted to SR 3. H/o NICM; 2006. Cath at that time with normal coronaries. Most recent echo 01/25 with LV recovery with EF 55-60% as noted above 4. Hyperlipidemia 5. HIV 6. low-grade fevers, poss UTI Recommendations 1. Continue metoprolol. Will consider amiodarone as pt was on this before but discontinued due to low afib burden per [facility] 2. Eliquis for stroke prevention 3. TTE today if able 4. Plan for further ischemic workup, possibly as an outpatient 5. Follow up in office as scheduled Physical exam General: Alert, Oriented X3, Cooperative, mild distress, moderate distress Heart: Regular rate, Normal S1, Normal S2, No murmurs Lungs: Clear Abdomen: Normal bowel sounds, Soft, No tenderness Extremities: No clubbing, Normal pulses Skin: No rashes, No significant lesion Discharge Information Condition at Discharge: Improved Follow Up: Weeks Disposition/Orders: D/C to Home Scheduled Abacavir/Dolutegravir/Lamivudi (Triumeq Tablet) 1 Each Tablet, 1 TAB PO DAILY for HIV for 30 Days, #30 Ref 0 (Reported) Entered as Reported by: CATE MOLINA on 01/28/202017 Last Action: Converted on 01/28/202032 by CHACORTA JOSEPH Anastrozole (Arimidex) 1 Mg Tablet, 1 TAB PO DAILY for HIV/Autoimmune for 30 Days, #30 Ref 0 (Reported) Entered as Reported by: CATE MOLINA on 01/28/202024 Last Action: Continued on 01/28/202032 by CHACORTA JOSEPH Atorvastatin Calcium (Lipitor) 40 Mg Tablet, 40 MG PO HS for FOR CHOLESTEROL, # 30 Ref 0 (Reported) Entered as Reported by: CATE MOLINA on 01/28/202015 Last Action: Continued on 01/28/202032 by CHACORTA JOSEPH Carvedilol (Coreg ) 6.25 Mg Tablet, 6.25 MG PO BIDWMEALS for CARDIAC, (Repo rted) Entered as Reported by: CATE MOLINA on 01/28/202014 Last Action: Continued on 01/28/202032 by CHACORTA JOSEPH Difluprednate (Durezol) 5 Ml Drops, 5 ML OP BID for eye pain, (Reported) Entered as Reported by: CATE MOLINA on 01/28/202023 Last Action: Converted on 01/28/202032 by TAVO KEEN MD January 30, 2020 15:09
--- NOTE | 2020-01-30 15:21 | CARD ---
MR#: [id number] Date of Study: 01/30/2020 Ordering Physician: RODGER DURON, Referring Physician: RODGER DURON, Tech: Tete Maldonado APPROVED REPORT EXAM: Two-dimensional and M-mode echocardiogram with Doppler and color Doppler. Other Information Quality : AverageHR: 65bpm INDICATION Chest Pain 2D DIMENSIONS Left Atrium(2D)3.7 (1.6-4.0cm)IVSd1.2 (0.7-1.1cm) Aortic Root(2D)3.0 (2.0-3.7cm)LVDd4.6 (3.9-5.9cm) LVOT Diameter2.2 (1.8-2.4cm)PWd1.3 (0.7-1.1cm) LVDs4.1 (2.5-4.0cm)FS (%) 12.4 % SV26.5 mlLVEF(%)26.7 (>50%) Aortic Valve AoV Peak Mukul.125.6cm/sAoV VTI24.9cm AO Peak GR.6.3mmHgLVOT Peak Mukul.98.3cm/s LVOT VTI 18.99cmAO Mean GR.3mmHg ILIANA (VMAX)2.58hc8UAU (VTI)2.96cm2 Mitral Valve MV E Prrubjjz87.4cm/sMV DECEL [id number] MV A Jgiphbfp92.5cm/sMV E Mean Gr.1mmHg MV RTM95qzM/A Ratio1.2 MVA (PHT)3.63cm2 TDI E/Lateral E'8.7E/Medial E'11.8 Pulmonary Valve PV Peak Svmqarjj66.2cm/sPV Peak Grad.3mmHg Tricuspid Valve TR P. [id number]/sRAP [id number] TR Peak Gr.3flXiMOHU56rnQe LEFT VENTRICLE The left ventricle is normal size. There is borderline to mild concentric left ventricular hypertroph y. The left ventricular systolic function is normal and the ejection fraction is within normal range. The Ejection Fraction is 50-55%. There is normal LV segmental wall motion. Tissue Doppler imaging re veals mild left ventricular diastolic dysfunction. RIGHT VENTRICLE The right ventricle is normal size. There is normal right ventricular wall thickness. The right ventr icular systolic function is normal. ATRIA The left atrium size is normal. The right atrium size is normal. The interatrial septum is intact wit h no evidence for an atrial septal defect or patent foramen ovale as noted on 2-D or Doppler imaging. AORTIC VALVE The aortic valve is calcified. Doppler and Color Flow revealed no significant aortic regurgitation. T here is no significant aortic valvular stenosis. MITRAL VALVE The mitral valve is normal in structure and function. There is no evidence of mitral valve prolapse. There is no mitral valve stenosis. Doppler and Color-flow revealed trace mitral regurgitation. TRICUSPID VALVE The tricuspid valve is normal in structure and function. Doppler and Color Flow revealed no tricuspid valve regurgitation noted. There is no tricuspid valve stenosis. PULMONIC VALVE The pulmonic valve is not well visualized. Doppler and Color Flow revealed trace pulmonic valvular re gurgitation. There is no pulmonic valvular stenosis. GREAT VESSELS The aortic root is normal in size. The IVC was not well visualized. PERICARDIAL EFFUSION There is no evidence of significant pericardial effusion. Critical Notification Critical Value: No <Conclusion> The left ventricular systolic function is normal and the ejection fraction is within normal range. Th e Ejection Fraction is 50-55%. There is normal LV segmental wall motion. Signed by : Osmar Jorgensen, Electronically Approved : 01/30/2020 15:20:52
--- NOTE | 2020-01-30 15:52 | NUR ---
Discharge Note: JAYME POSADAS [address] Discharge instructions and discharge home medications reviewed with Patient and a copy given. All questions have been answered and understanding verbalized. The following instructions and handouts were given: AFib, CP, Eliquis, metoprolol, cefdinir, monitoring BP and keeping record for f/u cards appointment Discontinued lines and drains: Peripheral IV intact. Patient discharged to Home or Self Care with Spouse via Wheelchair
== END 2020-01-30 15:53 | disposition home or self-care (01) | DRG 872 ==
LOC: ER 14:20 → 6 SOUTH 16:30 → OBSVTOIN 01-29 16:30
PROVIDERS: ADMIT Internal Medicine; ATTEND Internal Medicine
DX: A41.9 Sepsis, unspecified organism (principal); I42.8 Other cardiomyopathies; N39.0 Urinary tract infection, site not specified; B95.7 Other staphylococcus as the cause of diseases classified elsewhere; E78.5 Hyperlipidemia, unspecified; F32.9 Major depressive disorder, single episode, unspecified; F41.9 Anxiety disorder, unspecified; I11.0 Hypertensive heart disease with heart failure; I25.119 Atherosclerotic heart disease of native coronary artery with unspecified angina pectoris; Z20.828 Contact with and (suspected) exposure to other viral communicable diseases; I48.0 Paroxysmal atrial fibrillation; I50.9 Heart failure, unspecified; Z21 Asymptomatic human immunodeficiency virus [HIV] infection status; Z82.49 Family history of ischemic heart disease and other diseases of the circulatory system; Z82.5 Family history of asthma and other chronic lower respiratory diseases; Z83.3 Family history of diabetes mellitus; Z86.718 Personal history of other venous thrombosis and embolism; Z88.8 Allergy status to other drugs, medicaments and biological substances
CPT/HCPCS: 36415; 71045; 80053; 80061; 81001; 83605; 83880; 84443; 84484; 85025; 85379; 87086; 93005; 93306; 96361; 96374; 96375; 99285; G0378; G0379; J0696; J1160; J1650; J1885; J2270; J2405; J3490; J7030; U0003-CS